=== PATIENT | male | born 1965 | race Caucasian/White ===

== ENCOUNTER 2018-05-03 16:25 | Emergency (ER) | payer OTHER ==
[~2018-05-03] VITALS: Ht 177.8 cm; Wt 110.2 kg
[2018-05-03 16:33] VITALS: Ht 177.8 cm; Wt 110.2 kg
[2018-05-03 17:40] LABS: BASOPHIL % 1.1 % (0-2); PLATELET COUNT 251 x10^3mcL (130-400)
[2018-05-03 17:45] LABS: CARBON DIOXIDE 27.2 mmol/L (21-32); CREATININE SERUM 1.5 mg/dL (0.7-1.3)
[2018-05-03 17:46] LABS: RED CELL DISTRIBUTION WIDTH 14.9 % (11.5-14.5)
[2018-05-03 17:50] LABS: BILIRUBIN TOTAL 0.55 mg/dL (0.20-1.00); TOTAL PROTEIN, SERUM 7.7 g/dL (6.4-8.2)
[2018-05-03 18:22] LABS: microscopic required? NO
[2018-05-03 18:50] LABS: urine erythrocyte NEGATIVE (NEGATIVE)
[2018-05-03 20:13] VITALS: BP 118/76
== END 2018-05-03 20:13 | disposition home or self-care (01) ==
LOC: ED 16:25
PROVIDERS: Emergency Medicine
DX: K76.0 Fatty (change of) liver, not elsewhere classified (principal); R11.2 Nausea with vomiting, unspecified; J45.909 Unspecified asthma, uncomplicated; I10 Essential (primary) hypertension; Z88.0 Allergy status to penicillin; Z87.19 Personal history of other diseases of the digestive system; Z98.890 Other specified postprocedural states
CPT/HCPCS: 82962; J2270; J2405; J7030; Q0092